=== PATIENT | female | born 1995 | race Caucasian/White ===

== ENCOUNTER 2016-10-28 17:47 | Emergency (ER) | payer BC, OTHER ==
[2016-10-28 17:55] VITALS: BP 131/84; PULSE 70; RESP 18; TEMP 97.8; O2SAT 100
--- NOTE | 2016-10-28 18:34 | ED PDOC ---
HPI: Psych/Substance Abuse Time Seen by Provider: 10/28/16 17:53 Chief Complaint (Nursing): Psychiatric Evaluation Chief Complaint (Provider): crisis eval History Per: Patient, EMS Additional Complaint(s): 21 year old female presents to ED for crisis eval. Patient was seen by her psychiatrist earlier today and when psychiatrist told her that she was not able to receive a letter that she was expecting to clear her for a new job, she became very upset in the office. The psychiatrist recommended that patient come to ED for further evaluation. Upon arrival patient feels frustrated after her doctor's office visit prior to arrival and denies any suicidal or homicidal ideation. Patient has history of bipolar disorder and has been compliant with her meds. She denies any etoh or drug use and offers no acute medical complaints at this time. Past Medical History Reviewed: Historical Data, Nursing Documentation, Vital Signs Vital Signs: Last Vital Signs Temp 97.8 F 10/28/16 17:52 Pulse 70 10/28/16 17:52 Resp 18 10/28/16 17:52 BP 131/84 10/28/16 17:52 Pulse Ox 100 10/28/16 17:52 - Medical History PMH: Bipolar Disorder - Family History Family History: States: No Known Family Hx - Living Arrangements Living Arrangements: With Family - Social History Current smoker - smoking cessation education provided: No Alcohol: None Drugs: Denies - Allergies Allergies/Adverse Reactions: Allergies Allergy/AdvReac Type Severity Reaction Status Date / Time No Known Allergies Allergy Verified 10/28/16 17:52 Review of Systems ROS Statement: Except As Marked, All Systems Reviewed And Found Negative Psych: Positive for: Other (sent by psychiatrist for crisis eval) Physical Exam - Reviewed Nursing Documentation Reviewed: Yes Vital Signs Reviewed: Yes - Physical Exam Appears: Positive for: Well, Non-toxic, No Acute Distress Skin: Negative for: Rash Eye Exam: Positive for: Normal appearance, EOMI, PERRL Cardiovascular/Chest: Positive for: Regular Rate, Rhythm Respiratory: Positive for: Normal Breath Sounds Neurologic/Psych: Positive for: Alert, Oriented - ECG O2 Sat by Pulse Oximetry: 100 Pulse Ox Interpretation: Normal Medical Decision Making Medical Decision Makin21 year old here for crisis eval Plan: Crisis consult As per crisis counselor and psychiatrist manufacturing applications engineer, Dr. Bob, patient does not meet criteria for admission and is stable for discharge. Disposition - Clinical Impression Clinical Impression: Bipolar disorder - Patient ED Disposition Is Patient to be Admitted: No Counseled Patient/Family Regarding: Diagnosis, Need For Followup - Disposition Referrals: [facility] [Outside] Disposition: Routine/Home Disposition Time: 18:33 Condition: STABLE Additional Instructions: Follow up as directed. Instructions: Bipolar Disorder (ED) Forms: [facility] ED School/Work Excuse
== END 2016-10-28 19:03 | disposition home or self-care (01) ==
LOC: H.ER 17:47
DX: F31.9 Bipolar disorder, unspecified (principal); Z00.8 Encounter for other general examination; Z86.59 Personal history of other mental and behavioral disorders